=== PATIENT | male | born 1995 | race Caucasian/White ===

== ENCOUNTER 2018-03-01 15:55 | Emergency (ER) | payer OTHER ==
[2018-03-01] MEDS ORDERED: NS 1,000 ML IV ONE ×2 (16:22)
--- NOTE | 2018-03-01 16:22 | EDPHY ---
H & P Time Seen by Provider: 03/01/18 16:21 HPI/ROS: Chief complaint. Blood in urine HPI. Patient is 22-year-old male visiting from [place] arriving in [place] 2 weeks ago. 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 This morning he did his normal training day which was a 10 K run and then noticed bright red color in his urine. He has some crampy suprapubic discomfort but no flank tenderness. Penis and testicles are normal. No fever or chest discomfort or trouble breathing. No vomiting or diarrhea. No similar symptoms previously. Seen at urgent care and referred to the ED to rule out rhabdomyolysis. Otherwise no urinary symptoms of frequency or dysuria ROS Constitutional. no fever/chills, no weakness Eyes. no problems with vision ENT. no sore throat, no nasal drainage Cardiovascular. no chest pain Respiratory. no shortness of breath, no cough Abdominal. no abdominal pain, no nausea/vomiting, no diarrhea . Red colored urine MS. no calf pain/swelling, no neck/back pain, no joint pain Skin. no rash Lymph. no swollen glands Neuro. no headache, no dizziness, no difficulty walking or with speech Past Medical/Surgical History: Healthy Social History: Single, nonsmoker, no alcohol Smoking Status: Never smoked Physical Exam: General Appearance: Alert well-developed male mild distress vital signs are stable Eyes: Pupils equal and round no pallor or injection. ENT, Mouth: Mucous membranes are moist. Respiratory: There are no retractions, lungs are clear to auscultation. Cardiovascular: Regular rate and rhythm. Gastrointestinal: Abdomen is soft with mild suprapubic tenderness. No masses. Normal bowel sounds Neurological: Awake and alert, sensory and motor exams grossly normal. Skin: Warm and dry, no rashes. Musculoskeletal: Neck is supple nontender. Extremities symmetrical, full range of motion. Psychiatric: Patient is oriented X 3, there is no agitation. Constitutional: Initial Vital Signs Temperature (C) 36.8 C 03/01/18 16:02 Heart Rate 64 03/01/18 16:02 Respiratory Rate 18 03/01/18 16:02 Blood Pressure 147/76 H 03/01/18 16:02 O2 Sat (%) 99 03/01/18 16:02 O2 Delivery Mode Room Air Allergies/Adverse Reactions: No Known Allergies Allergy (Unverified 03/01/18 16:02) Home Medications: Medication Instructions Recorded Cephalexin [Keflex (*)] 500 mg PO TID #21 cap 03/01/18 Medical Decision Making Procedures: IV normal saline with initial target of 2 L ED Course/Re-evaluation: Patient does have hematuria but he also has leukocytes in his urine. It is sent for culture and sensitivity. IV Rocephin Patient and I discussed laboratory evaluation, treatment plan including criteria for return importance of follow-up and further evaluation. He expresses understanding and agreement After 2 L we will recheck patient's CPK Repeat CPK is about the same but not worsening. Re-evaluation at 6:30 p.m. Patient is stable. Differential Diagnosis: I considered rhabdomyolysis, urinary tract infection, kidney stone. - Data Points Laboratory Results: Laboratory Results 03/01/18 16:30 03/01/18 16:30 03/01/18 03/01/18 03/01/18 18:17 16:30 16:30 WBC 8.03 10^3/uL 10^3/uL (3.80-9.50) RBC 4.95 10^6/uL 10^6/uL (4.40-6.38) Hgb 14.3 g/dL g/dL (13.7-17.5) Hct 42.8 % % (40.0-51.0) MCV 86.5 fL fL (81.5-99.8) MCH 28.9 pg pg (27.9-34.1) MCHC 33.4 g/dL g/dL (32.4-36.7) RDW 13.4 % % (11.5-15.2) Plt Count 284 10^3/uL 10^3/uL (150-400) MPV 9.1 fL fL (8.7-11.7) Neut % (Auto) 59.8 % % (39.3-74.2) Lymph % (Auto) 29.3 % % (15.0-45.0) [place] % (Auto) 7.6 % % (4.5-13.0) Eos % (Auto) 2.7 % % (0.6-7.6) Baso % (Auto) 0.5 % % (0.3-1.7) Nucleat RBC Rel Count 0.0 % % (0.0-0.2) Absolute Neuts (auto) 4.80 10^3/uL 10^3/uL (1.70-6.50) Absolute Lymphs (auto) 2.35 10^3/uL 10^3/uL (1.00-3.00) Absolute Monos (auto) 0.61 10^3/uL 10^3/uL (0.30-0.80) Absolute Eos (auto) 0.22 10^3/uL 10^3/uL (0.03-0.40) Absolute Basos (auto) 0.04 10^3/uL 10^3/uL (0.02-0.10) Absolute Nucleated RBC 0.00 10^3/uL 10^3/uL (0-0.01) Immature Gran % 0.1 % % (0.0-1.1) Immature Gran # 0.01 10^3/uL 10^3/uL (0.00-0.10) Sodium 141 mEq/L mEq/L (135-145) Potassium 4.3 mEq/L mEq/L (3.3-5.0) Chloride 100 mEq/L mEq/L (97-110) Carbon Dioxide 26 mEq/l mEq/l (22-31) Anion Gap 15 mEq/L mEq/L (8-16) BUN 23 mg/dL mg/dL (7-23) Creatinine 0.8 mg/dL mg/dL (0.7-1.3) Estimated GFR > 60 Glucose 84 mg/dL mg/dL (70-100) Calcium 9.3 mg/dL mg/dL (8.5-10.4) Creatine Kinase 437 IU/L H IU/L 434 IU/L H IU/L (0-224) (0-224) CK-MB (CK-2) Fraction Pending 8.16 ng/mL H ng/mL (0.00-4.55) CK-MB (CK-2) % Pending 1.9 % % (0.0-4.0) Creatine Kinase Interp Pending NEGATIVE (NEGATIVE) Urine Color Urine Appearance Urine pH Ur Specific Elliott Urine Protein Urine Ketones Urine Blood Urine Nitrate Urine Bilirubin Urine Urobilinogen Ur Leukocyte Esterase Urine RBC Urine WBC Ur Epithelial Cells Urine Mucus Urine Glucose 03/01/18 16:15 WBC RBC Hgb Hct MCV MCH MCHC RDW Plt Count MPV Neut % (Auto) Lymph % (Auto) [place] % (Auto) Eos % (Auto) Baso % (Auto) Nucleat RBC Rel Count Absolute Neuts (auto) Absolute Lymphs (auto) Absolute Monos (auto) Absolute Eos (auto) Absolute Basos (auto) Absolute Nucleated RBC Immature Gran % Immature Gran # Sodium Potassium Chloride Carbon Dioxide Anion Gap BUN Creatinine Estimated GFR Glucose Calcium Creatine Kinase CK-MB (CK-2) Fraction CK-MB (CK-2) % Creatine Kinase Interp Urine Color RED Urine Appearance MODERATELY TURBID Urine pH 7.0 (5.0-7.5) Ur Specific Elliott 1.023 (1.002-1.030) Urine Protein 2+ H (NEGATIVE) Urine Ketones NEGATIVE (NEGATIVE) Urine Blood 3+ H (NEGATIVE) Urine Nitrate NEGATIVE (NEGATIVE) Urine Bilirubin NEGATIVE (NEGATIVE) Urine Urobilinogen NEGATIVE EU EU (0.2-1.0) Ur Leukocyte Esterase NEGATIVE (NEGATIVE) Urine RBC 50-182 /hpf H /hpf (0-3) Urine WBC 50-182 /hpf H /hpf (0-3) Ur Epithelial Cells NONE SEEN /lpf /lpf (NONE-1+) Urine Mucus TRACE /lpf /lpf (NONE-1+) Urine Glucose NEGATIVE (NEGATIVE) Medications Given: Discontinued Medications Sodium Chloride (Ns) 1,000 mls @ 0 mls/hr IV EDNOW ONE; Wide Open PRN Reason: Protocol Stop: 03/01/18 16:23 Last Admin: 03/01/18 16:30 Dose: 1,000 mls Sodium Chloride (Ns) 1,000 mls @ 0 mls/hr IV EDNOW ONE; Wide Open PRN Reason: Protocol Stop: 03/01/18 16:23 Last Admin: 03/01/18 17:01 Dose: 1,000 mls Ceftriaxone Sodium/Dextrose (Rocephin 1 Gm (Premix)) 50 mls @ 100 mls/hr IV EDNOW ONE PRN Reason: Protocol Stop: 03/01/18 17:49 Last Admin: 03/01/18 17:48 Dose: 50 mls Departure - Departure Disposition: Home, Routine, Self-Care Clinical Impression: Urinary tract infection Qualifiers: Urinary tract infection type: site unspecified Hematuria presence: with hematuria Qualified Code(s): N39.0 - Urinary tract infection, site not specified ; R31.9 - Hematuria, unspecified; R31.9 - Hematuria, unspecified Condition: Good Instructions: Urinary Tract Infection in Men (ED) Additional Instructions: Drink plenty of fluids and stay hydrated. no exercise for 24 hr and then if feeling well may resume Cephalexin 1 pill 3 times daily for 1 week. Return for worsening symptoms. Recheck in 2 days for continuing red discoloration of urine, fever, vomiting or not improved Referrals: NONE *PRIMARY CARE P,. [Primary Care Provider] - As per Instructions Prescriptions: Cephalexin [Keflex (*)] 500 mg PO TID #21 cap
[2018-03-01 16:52] LABS: PLATELET COUNT 284 10^3/uL (150-400)
[2018-03-01 16:59] LABS: CREATINE KINASE 434 IU/L (0-224)
[2018-03-01 18:25] LABS: CREATINE KINASE 437 IU/L (0-224)
[2018-03-01 19:12] VITALS: BP 132/71
== END 2018-03-01 19:11 | disposition home or self-care (01) ==
DX: N39.0 Urinary tract infection, site not specified (principal); E86.9 Volume depletion, unspecified; B96.89 Other specified bacterial agents as the cause of diseases classified elsewhere
CPT/HCPCS: 96365; J0696